=== PATIENT | female | born 1965 | race Hispanic/Latino ===

== ENCOUNTER 2022-11-21 12:17 | Outpatient (CLI) | payer OTHER | END 2022-11-21 12:18 | disposition home or self-care (01) | LOC: CSHCP 12:17 | PROVIDERS: ATTEND Internal Medicine Critical Care Medicine | DX: J45.20 Mild intermittent asthma, uncomplicated (principal) | CPT/HCPCS: 94010; 94726; 94729; 94760 ==

== ENCOUNTER 2025-11-09 11:26 | Emergency (ER) | payer OTHER ==
[2025-11-09] MEDS ORDERED: Dexamethasone 4 MG TAB ONE (12:20)
== END 2025-11-09 13:49 | disposition home or self-care (01) ==
LOC: CSHERS 11:26
DX: J10.1 Influenza due to other identified influenza virus with other respiratory manifestations (principal); J45.901 Unspecified asthma with (acute) exacerbation
CPT/HCPCS: 71046; 93005; 94640; J8540